=== PATIENT | female | born 1940 | race Caucasian/White ===

== ENCOUNTER 2020-01-21 12:19 | Emergency (ER) | payer MEDICARE, SELFPAY ==
[2020-01-21] VITALS (31 sets, daily range): BP systolic 106–158; BP diastolic 45–81; PULSE 66–83; RESP 15–21; TEMP 36.6–37.1; O2SAT 91–100
--- NOTE | 2020-01-21 12:30 | DI.CT_ITS ---
EXAM: CT HEAD WO CLINICAL HISTORY: weakness, CARTAGENA, hx brain CA. TECHNIQUE: Imaging Protocol: Axial computed tomography images with coronal and sagittal reformatted images were created and reviewed COMPARISON: HEAD WITHOUT CONTRAST from 03/16/2015 FINDINGS: A left frontal craniotomy is again noted. There has been no change in the appearance of the area of encephalomalacia in the left frontal lobe. There is stable marked dilatation of the frontal horn of the left lateral ventricle. There is atrophy and white matter changes of small vessel disease, also unchanged. No mass, acute hemorrhage or acute infarct is seen. No acute skull fracture is seen. IMPRESSION: Cyst stable left frontal encephalomalacia and ventriculomegaly. No acute intracranial process. RADIATION DOSE DELIVERED: DATA REPOSITORY: All CT scans at this facility are submitted to the National Radiology Data Registry (NRDR) Dose Index Registry (DIR) with the [employer] ([employer]). RADIATION OPTIMIZATION: All CT scans at this facility use at least one of these dose optimization te chniques: automated exposure control; mA and/or kV adjustment per patient size (includes targeted exa ms where dose is matched to clinical indication); or iterative reconstruction.
--- NOTE | 2020-01-21 12:30 | DI.CT_ITS ---
EXAM: CT CHEST/ABD/PEL W CLINICAL HISTORY: weakness, nonverbal, not eating/drinking, abd pain. TECHNIQUE: Imaging Protocol: Axial computed tomography images with coronal and sagittal reformatted images were created and reviewed CONTRAST MATERIAL: Intravenous: Omnipaque 350 Contrast volume:100 ml Oral: no COMPARISON: CT ABD PELVIS WITH CONTRAST from 04/28/2014 FINDINGS: The exam is somewhat limited by respiratory motion. CHEST: Thyroid: Large mass right lobe partially included on the exam. Please see separate neck CT report. Tracheobronchial tree: Patent where visualized. Mediastinum and [place]: No dominant adenopathy or fluid collection. Pulmonary parenchyma: No consolidation or dominant measurable mass. Respiratory motion. Pleura: No effusion or pneumothorax. Lymph nodes: Within normal limits. Aorta: Thoracic portion non-dilated. Heart: Normal in size. Bones: Degenerative changes in the thoracic spine. Minimal T7 compression fracture. ABDOMEN: Liver: Marked fatty infiltration.. No measurable mass. Gallbladder and biliary tract: No radiodense calculus or dilation. Pancreas: Normal density, no abnormal calcifications or inflammatory process. Spleen: Normal. Kidneys: Normal size, contour and axis. No radiodense stones or obstructive uropathy. No masses seen. Adrenal glands: No masses seen. Aorta: Abdominal portion non-dilated. Moderate calcification. Lymph nodes: Within normal limits. PELVIS: Bladder: Symmetric distention, no gross wall thickening. Bowel: No obstruction or bowel wall thickening. The appendix appears normal. There is a normal quant ity of stool. Peritoneal cavity: No ascites, collection or mesenteric inflammatory response. Bones: Degenerative disc changes.. Reproductive organs: Within normal limits. IMPRESSION: Right-sided thyroid mass. Otherwise unremarkable CT scan of the chest, abdomen, and pelvis. DATA REPOSITORY: All CT scans at this facility are submitted to the National Radiology Data Registry (NRDR) Dose Index Registry (DIR) with the [employer] ([employer]). RADIATION OPTIMIZATION: All CT scans at this facility use at least one of these dose optimization te chniques: automated exposure control; mA and/or kV adjustment per patient size (includes targeted exa ms where dose is matched to clinical indication); or iterative reconstruction.
[2020-01-21 13:00] LABS: Lactate 1.7 mmol/L (0.6-1.4)
[2020-01-21 13:04] LABS: Abs Immature Grans 0.02 k/cumm (0.0-0.09); Absolute Basophil Count 0.03 k/cumm (0.0-0.2); Absolute Eosinophil Count 0.11 k/cumm (0.0-0.7); Absolute Monocyte Count 0.82 k/cumm (0.11-0.7); Absolute Neutrophil Count 5.44 k/cumm (1.2-6.7); Basophils % 0.4; Eosinophils % 1.3; HCT 41.3 % (36.0-46.0); HGB 13.2 g/dL (12.0-15.5); Immature Grans % 0.2 %; Lymphocytes % 22.8; Mean Corpuscular Hemoglobin 29.1 pg (27.0-33.0); Mean Platelet Volume 9.3 fL (8.0-11.0); Monocytes % 9.9; Neutrophils % 65.4; Platelet Count 343 x1000/uL (130-400); RBC 4.54 m/cumm (4.00-5.20); RBC Distribution Width 13.8 % (11.7-14.6); White Blood Cell Count 8.32 k/cumm (4.4-10.8)
[2020-01-21 13:19] LABS: ALT 38 U/L (14-59); AST 30 U/L (15-37); Albumin 2.9 g/dL (3.4-5.0); Alkaline Phosphatase 86 U/L (46-116); Anion Gap 10.6 mmol/L (3-11); BUN 14 mg/dL (7-18); Bilirubin, Total 0.4 mg/dL (0.2-1.0); CO2 27.4 mmol/L (21.0-32.0); CREATININE 1.01 mg/dL (0.55-1.02); Calcium 9.5 mg/dL (8.5-10.1); Chloride 110 mmol/L (98-107); Estimated GFR 53.15 (mL/min/1.73m2); Glucose 135 mg/dL (74-106); Sodium 148 mmol/L (136-145); Total Protein 8.9 g/dL (6.4-8.2)
[2020-01-21 13:20] LABS: Bilirubin Negative (Negative); Blood Negative (Negative); Clarity Clear (Clear); Glucose Negative (Negative); Ketones Negative (Negative); Leukocyte Esterase Negative (Negative); Nitrite Negative (Negative); Specific Gravity >= 1.030 (1.005-1.025); Urobilinogen 0.2 EU/dL (Up TO 0.2); pH 5.5 (5-8)
[2020-01-21 13:21] LABS: Lipase 160 U/L (73-393); Troponin I < 0.05 ng/Ml (<0.06)
[2020-01-21] MEDS: Normal Saline 1,000 ML 1000 ML IV ×2 (13:23→15:24)
[2020-01-21 13:30] LABS: Bacteria Moderate HPF (Negative); Crystals Negative HPF (Negative); Epithelial Cells Moderate HPF (Negative); Other Cells Few Yeast (Negative)
[2020-01-21 13:31] LABS: C & S Indicated? No/Sq. Contamination; Casts Negative LPF (Negative); Mucus Heavy (Negative)
--- NOTE | 2020-01-21 13:45 | DI.CT_ITS ---
EXAM: CT NECK W CLINICAL HISTORY: neck mass noted, assess further. TECHNIQUE: Imaging Protocol: Axial computed tomography images with coronal and sagittal reformatted images were created and reviewed CONTRAST MATERIAL: Intravenous: Omnipaque 350 Contrast volume:100 ml Contrast route:IV- The neck CT was performed following the chest abdomen pelvic CT with no additional IV contrast. COMPARISON: CT CHEST/ABD/PEL W from 01/21/2020 FINDINGS: The exam is mildly limited by patient motion. Thyroid: There is a large circumscribed mass involving the right lobe of the thyroid. It measures 5. 8 x 5.4 x 5.7 cm in transverse and AP dimensions and 8 cm in length. There are areas low-attenuatio n within the solid portions. There is deviation of the trachea and esophagus toward the left. There is no esophageal dilatation. There is no evidence of vascular invasion. There is a partially calcif ied nodule in the left lobe of the thyroid measuring roughly 1.8 cm. Parotid glands: Mostly fatty replaced. Submandibular glands: Normal. Lymphadenopathy: There is scattered lymph nodes seen along the level one to level three all measurin g less than 8 mm in short axis diameter which are physiologic in nature. Carotids/Jugular: Suboptimally opacified with contrast Soft tissues: The floor the mouth is unremarkable. The epiglottis and vocal cords are within normal limits. Images through both lung apices are unremarkable. Bones: Mild degenerative disc changes and facet degenerative changes. IMPRESSION: Circumscribed heterogeneous mass in the right lobe of the thyroid measuring 5.8 x 5.4 X 5.7 cm causi ng tracheal esophageal deviation.. RADIATION DOSE DELIVERED: DATA REPOSITORY: All CT scans at this facility are submitted to the National Radiology Data Registry (NRDR) Dose Index Registry (DIR) with the [employer] ([employer]). RADIATION OPTIMIZATION: All CT scans at this facility use at least one of these dose optimization te chniques: automated exposure control; mA and/or kV adjustment per patient size (includes targeted exa ms where dose is matched to clinical indication); or iterative reconstruction.
[2020-01-21] MEDS: Omnipaque 350 MG/ML 100 ML BTL IJ (14:08)
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
[2020-01-21 16:41] LABS: Lactate 1.4 mmol/L (0.6-1.4)
[2020-01-21 17:10] LABS: Anion Gap 8.2 mmol/L (3-11); BUN 12 mg/dL (7-18); CO2 26.8 mmol/L (21.0-32.0); CREATININE 0.85 mg/dL (0.55-1.02); Calcium 8.3 mg/dL (8.5-10.1); Chloride 113 mmol/L (98-107); Glucose 117 mg/dL (74-106); Potassium 4.1 mmol/L (3.5-5.1); Sodium 148 mmol/L (136-145); TSH (W/Ref FT4) 1.71 uIU/mL (0.36-3.74)
== END 2020-01-21 18:51 | disposition home or self-care (01) ==
PROVIDERS: Physician Assistant; Emergency Provider Physician Assistant; PCP Family Medicine
DX: E07.89 Other specified disorders of thyroid (principal); E87.0 Hyperosmolality and hypernatremia; E86.0 Dehydration; Z87.820 Personal history of traumatic brain injury; Z85.841 Personal history of malignant neoplasm of brain; R47.01 Aphasia
CPT/HCPCS: 70491; 74177; 80048; 80053; 83690; 93005; 96360; 96361; 99285; 70450; 71260; 81003; 81015; 83605; 84443; 84484; 85025; 87086; 93010; 99284; J3490

== ENCOUNTER 2020-02-09 11:23 | Emergency (ER) | payer MEDICARE, SELFPAY ==
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
[2020-02-09 11:34] VITALS: BP 134/72; PULSE 101; RESP 20; TEMP 36.8; O2SAT 94
[2020-02-09] MEDS: Lactated Ringers 1,000 ML 1000 ML IV (11:50)
[2020-02-09 12:02] LABS: Abs Immature Grans 0.02 k/cumm (0.0-0.09); Absolute Basophil Count 0.04 k/cumm (0.0-0.2); Absolute Eosinophil Count 0.19 k/cumm (0.0-0.7); Absolute Lymphocyte Count 1.74 k/cumm (1.2-3.4); Absolute Monocyte Count 0.84 k/cumm (0.11-0.7); Absolute Neutrophil Count 6.17 k/cumm (1.2-6.7); Basophils % 0.4; Eosinophils % 2.1; HCT 43.6 % (36.0-46.0); HGB 13.9 g/dL (12.0-15.5); Immature Grans % 0.2 %; Lymphocytes % 19.3; Mean Corp. HGB Concentration 31.9 g/dL (32.0-36.0); Mean Corpuscular Hemoglobin 28.8 pg (27.0-33.0); Mean Corpuscular Volume 90.5 fL (80-95); Mean Platelet Volume 9.3 fL (8.0-11.0); Monocytes % 9.3; Neutrophils % 68.7; Platelet Count 339 x1000/uL (130-400); RBC 4.82 m/cumm (4.00-5.20); RBC Distribution Width 14.5 % (11.7-14.6)
[2020-02-09 12:23] LABS: ALT 36 U/L (14-59); AST 37 U/L (15-37); Albumin 2.8 g/dL (3.4-5.0); Alkaline Phosphatase 91 U/L (46-116); Anion Gap 9.4 mmol/L (3-11); BUN 16 mg/dL (7-18); Bilirubin, Total 0.3 mg/dL (0.2-1.0); CO2 25.6 mmol/L (21.0-32.0); CREATININE 1.18 mg/dL (0.55-1.02); Calcium 9.4 mg/dL (8.5-10.1); Chloride 109 mmol/L (98-107); Estimated GFR 44.42 (mL/min/1.73m2); Glucose 175 mg/dL (74-106); Potassium 3.8 mmol/L (3.5-5.1); Sodium 144 mmol/L (136-145); TSH (W/Ref FT4) 1.08 uIU/mL (0.36-3.74); Total Protein 8.5 g/dL (6.4-8.2)
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
[2020-02-09] MEDS: fentaNYL 12 MCG PATCH TD (14:21)
== END 2020-02-09 14:40 | disposition home or self-care (01) ==
PROVIDERS: Emergency Provider Physician Assistant; PCP Family Medicine
DX: E86.0 Dehydration (principal); N17.8 Other acute kidney failure; E07.9 Disorder of thyroid, unspecified; R63.4 Abnormal weight loss
CPT/HCPCS: 36415; 51701; 80053; 96360; 96361; 99255; 99284; 84443; 85025